=== PATIENT | male | born 1995 | race Caucasian/White ===

== ENCOUNTER 2018-01-19 10:32 | Emergency (ER) | payer OTHER ==
--- NOTE | 2018-01-19 10:50 | ER Document Report ---
ED Medical Screen (RME) - General Chief Complaint: Abdominal Pain Stated Complaint: STOMACH PAIN Time Seen by Provider: 01/19/18 10:43 Notes: RAPID MEDICAL EVALUATION DISCLOSURE I have seen this patient as part of a Rapid Medical Evaluation and, if applicable, placed any initially appropriate orders. The patient will be seen and fully evaluated, including a full history and physical exam, by a provider ( in Main ED or Fast Track) when a room becomes available. 22-year-old male here with complaints of right lower quadrant abdominal pain that he noticed this morning. The pain has been largely constant however has improved since onset and is currently better than it was initially. Pain is worse with movement. He has not taken anything for the pain. He has not had any nausea vomiting diarrhea fevers chills dysuria hematuria frequency. Of note , he was cutting down trees over the weekend and did fairly heavy lifting of 70 and 80 pounds by himself. He denies any flank or back pain. EXAM Mild RLQ TTP Mild right flank TTP Mild right lumbar paraspinal muscle TTP NOTE Patient would like to hold off on ED-administered medications at this time TRAVEL OUTSIDE OF THE [place] IN LAST 30 DAYS: No - Related Data Allergies/Adverse Reactions: amoxicillin trihydrate [From Augmentin] Allergy (Verified 10/30/15 08:04) Potassium Clavulanate * [From Augmentin] Allergy (Verified 10/30/15 08:04) Past Medical History Past Surgical History: Reports: Hx Kidney (Renal Surgery) - as a child Physical Exam - Vital signs Vitals: Temp Pulse Resp BP Pulse Ox 98.0 F 64 16 143/67 H 99 01/19/18 10:39 01/19/18 10:39 01/19/18 10:39 01/19/18 10:39 01/19/18 10:39 Course - Vital Signs Vital signs: Temp Pulse Resp BP Pulse Ox 98.0 F 64 16 143/67 H 99 01/19/18 10:39 01/19/18 10:39 01/19/18 10:39 01/19/18 10:39 01/19/18 10:39
[2018-01-19 11:43] LABS: ALANINE AMINOTRANSFERASE 31 U/L (21-72); ALBUMIN 4.3 g/dL (3.5-5.0); ALKALINE PHOSPHATASE 63 U/L (38-126); ANION GAP 16 (5-19); ASPARTATE AMINO TRANSFERASE 21 U/L (17-59); BILIRUBIN,DIRECT 0.2 mg/dL (0.0-0.4); BILIRUBIN,TOTAL 0.2 mg/dL (0.2-1.3); BLOOD UREA NITROGEN 12 mg/dL (7-20); CARBON DIOXIDE 21 mmol/L (22-30); CHLORIDE 109 mmol/L (98-107); GLUCOSE 124 mg/dL (75-110); LIPASE 54.8 U/L (23-300); SODIUM 145.8 mmol/L (137-145); TOTAL PROTEIN 7.3 g/dL (6.3-8.2)
[2018-01-19 11:47] LABS: APPEARANCE,URINE CLEAR; BILIRUBIN,URINE NEGATIVE (NEGATIVE); COLOR,URINE YELLOW; GLUCOSE, URINE NEGATIVE (NEGATIVE); KETONES,URINE NEGATIVE (NEGATIVE); LEUKOCYTE ESTERASE,URINE NEGATIVE (NEGATIVE); NITRITE,URINE NEGATIVE (NEGATIVE); PROTEIN,URINE NEGATIVE (NEGATIVE); URINE SPECIFIC GRAVITY 1.019; UROBILINOGEN,URINE NEGATIVE mg/dL (<2.0)
[2018-01-19] MEDS ORDERED: NORMAL SALINE 1000 ML 1,000 ML IV ONE (11:50)
[2018-01-19] MEDS ORDERED: KETOROLAC TROMETHAMINE INJ/PF 30 MG/1 ML SDV IV ONE (12:05)
[2018-01-19] MEDS ORDERED: ONDANSETRON HCL INJ/PF 4 MG/2 ML SDV IV ONE (12:05)
[2018-01-19 12:22] LABS: ABSOLUTE EOSINOPHILS # (AUTO) 0.1 10^3/uL (0.0-0.6); ABSOLUTE LYMPHOCYTES (AUTO) 2.4 10^3/uL (0.5-4.7); ABSOLUTE NEUT (AUTO) 8.2 10^3/uL (1.7-8.2); BASOPHILS % (AUTO) 0.3 % (0-2); HEMATOCRIT 45.9 % (37.9-51.0); HEMOGLOBIN 15.6 g/dL (13.5-17.0); LYMPHOCYTES % (AUTO) 20.6 % (13-45); MEAN CORPUSCULAR HEMOGLOBIN 31.9 pg (27.0-33.4); MEAN CORPUSCULAR HGB CONC 33.9 g/dL (32.0-36.0); MEAN CORPUSCULAR VOLUME 94 fl (80-97); MONOCYTES % (AUTO) 8.2 % (3-13); PLATELET COUNT 214 10^3/uL (150-450); RED BLOOD COUNT 4.89 10^6/uL (4.35-5.55); RED CELL DISTRIBUTION WIDTH 13.4 % (11.5-14.0); SEGMENTED NEUTROPHILS % (AUTO) 69.9 % (42-78); TOTAL CELLS COUNTED % (AUTO) 100 %; WHITE BLOOD COUNT 11.7 10^3/uL (4.0-10.5)
--- NOTE | 2018-01-19 12:38 | RADIOLOGY REPORT (SQ) ---
EXAM DESCRIPTION: CT LTD RENAL STONE PROTOCOL ON COMPLETED DATE/TIME: 01/19/2018 12:24 pm REASON FOR STUDY: right flank COMPARISON: CT 10/30/2015 TECHNIQUE: CT scan of the abdomen and pelvis performed without intravenous or oral contrast. Images reviewed with lung, soft tissue, and bone windows. Reconstructed coronal and sagittal MPR images revi ewed. All images stored on PACS. All CT scanners at this facility use dose modulation, iterative reconstruction, and/or weight based d osing when appropriate to reduce radiation dose to as low as reasonably achievable (ALARA). [facility]: Dose Right [facility]: CareDose [facility]: Dose Right [facility]: Teradose 4D [facility]: HomeStars RADIATION DOSE: 18.4mGy. LIMITATIONS: None. FINDINGS: The patient has a right-sided duplicated collecting system. The upper pole kidney cortex and upper pole kidney collecting system are nondilated. No upper pole stones. Along the right lower pole kidney, there is dilatation of the lower pole renal pelvis and diffuse cor tical thinning. No lower pole intrarenal stones or lower pole ureteral stones. Configuration of the right kidney is similar compared to 10/30/2015. LOWER CHEST: No significant findings. No nodules or infiltrates. NON-CONTRASTED LIVER, SPLEEN, ADRENALS: Evaluation limited by lack of IV contrast. No identified sign ificant masses. PANCREAS: No masses. No peripancreatic inflammatory changes. GALLBLADDER: No identified stones by CT criteria. No inflammatory changes to suggest cholecystitis. RIGHT KIDNEY AND URETER: No suspicious masses. Assessment limited by lack of IV contrast. No signif icant calcifications. No hydronephrosis or hydroureter. LEFT KIDNEY AND URETER: As above AORTA AND RETROPERITONEUM: No aneurysm. No retroperitoneal masses or adenopathy. BOWEL AND PERITONEAL CAVITY: No obvious masses or inflammatory changes. No free fluid. APPENDIX: Normal. PELVIS, BLADDER, AND ABDOMINAL WALL:No abnormal masses. No free fluid. Bladder normal. BONES: No significant findings. OTHER: No other significant finding. 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 This is similar compared to 10/30/2015. No CT evidence of obstructive urinary calculi. Normal appendix COMMENT: Quality ID # [id number]: Final reports with documentation of one or more dose reduction techniques (e.g., Automated exposure control, adjustment of the mA and/or kV according to patient size, use of iterative reconstruction technique) TECHNICAL DOCUMENTATION: JOB ID: [id number] [employer]- All Rights Reserved Reading location - IP/workstation name: [email or web address]
--- NOTE | 2018-01-19 13:02 | ER Document Report ---
ED General - General Chief Complaint: Abdominal Pain Stated Complaint: STOMACH PAIN Time Seen by Provider: 01/19/18 10:43 TRAVEL OUTSIDE OF THE [place] IN LAST 30 DAYS: No - HPI Patient complains to provider of: abdominal pain Notes: Patient coming in for abdominal pain right lower quadrant started earlier this morning patient states was acute in onset very intense and that has been intermittent more achy. States there is some mild pain in the right flank mostly in the right lower quadrant. Patient denies any trauma states he has been working outside and lifting heavy objects over the last few days. Patient denies fever chills nausea vomiting diarrhea denies any recent antibiotics denies any other medical issues. - Related Data Allergies/Adverse Reactions: amoxicillin trihydrate [From Augmentin] Allergy (Verified 10/30/15 08:04) Potassium Clavulanate * [From Augmentin] Allergy (Verified 10/30/15 08:04) Past Medical History - Social History Smoking Status: Current Every Day Smoker Chew tobacco use (# tins/day): No Frequency of alcohol use: None Drug Abuse: None Family History: Reviewed & Not Pertinent Patient has suicidal ideation: No Patient has homicidal ideation: No Renal/ Medical History: Denies: Hx Peritoneal Dialysis Past Surgical History: Reports: Hx Kidney (Renal Surgery) - as a child Review of Systems - Review of Systems Constitutional: No symptoms reported EENT: No symptoms reported Cardiovascular: No symptoms reported Respiratory: No symptoms reported Gastrointestinal: Abdominal pain Genitourinary: No symptoms reported Male Genitourinary: No symptoms reported Musculoskeletal: No symptoms reported Skin: No symptoms reported Hematologic/Lymphatic: No symptoms reported Neurological/Psychological: No symptoms reported -: Yes All other systems reviewed and negative Physical Exam - Vital signs Vitals: Temp Pulse Resp BP Pulse Ox 98.0 F 64 16 143/67 H 99 01/19/18 10:39 01/19/18 10:39 01/19/18 10:39 01/19/18 10:39 01/19/18 10:39 Interpretation: Normal - General General appearance: Appears well, Alert - HEENT Head: Normocephalic, Atraumatic Eyes: Normal Conjunctiva: Normal Cornea: Normal Eyelashes: Normal Pupils: PERRL Ears: Normal External canal: Normal Tympanic membrane: Normal Sinus: Normal Mouth/Lips: Normal Mucous membranes: Normal Pharynx: Normal Neck: Normal - Respiratory Respiratory status: No respiratory distress Chest status: Nontender Breath sounds: Normal Chest palpation: Normal - Cardiovascular Rhythm: Regular Heart sounds: Normal auscultation Murmur: No - Abdominal Inspection: Normal Distension: No distension Bowel sounds: Normal Tenderness: Tender - Mild tenderness to the right lower quadrant no rebound or guarding no McBurney's point tenderness no Contreras sign with slight tenderness to palpation of the right flank Organomegaly: No organomegaly - Back Back: Normal, Nontender - Extremities General upper extremity: Normal inspection, Nontender, Normal color, Normal ROM , Normal temperature General lower extremity: Normal inspection, Nontender, Normal color, Normal ROM , Normal temperature, Normal weight bearing. No: Vivi's sign - Neurological Neuro grossly intact: Yes Cognition: Normal Orientation: AAOx4 [place] Coma Scale Eye Opening: Spontaneous [place] Coma Scale Verbal: Oriented [place] Coma Scale Motor: Obeys Commands [place] Coma Scale Total: 15 Speech: Normal Motor strength normal: LUE, RUE, LLE, RLE Sensory: Normal - Psychological Associated symptoms: Normal affect, Normal mood - Skin Skin Temperature: Warm Skin Moisture: Dry Skin Color: Normal Course - Re-evaluation Re-evalutation: 01/19/18 13:34 The patient presents with abdominal pain without signs of peritonitis or other life-threatening or serious etiology. The patient appears stable for discharge and has been instructed to return immediately if the symptoms worsen in any way , or in 8-12hr if not improved for re-evaluation. The patient has been instructed to return if the symptoms worsen or change in any way. 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 He does have a small amount of stool in the right side of the colon. More likely congenital abnormality can explain the small amount hematuria that we see. No signs of UTI patient otherwise resting comfortably. Patient will be discharged on follow-up PCP - Vital Signs Vital signs: Temp Pulse Resp BP Pulse Ox 97.9 F 50 L 18 133/50 H 100 01/19/18 13:20 01/19/18 13:20 01/19/18 13:20 01/19/18 13:20 01/19/18 13:20 - Laboratory Result Diagrams: 01/19/18 12:11 01/19/18 11:00 Laboratory results interpreted by me: 01/19/18 01/19/18 01/19/18 11:00 11:00 11:00 WBC Sodium 145.8 H Chloride 109 H Carbon Dioxide 21 L Glucose 124 H Creatine Kinase 250 H Urine Blood LARGE H 01/19/18 12:11 WBC 11.7 H Sodium Chloride Carbon Dioxide Glucose Creatine Kinase Urine Blood Discharge - Discharge Clinical Impression: Abdominal pain Qualifiers: Abdominal location: right lower quadrant Qualified Code(s): R10.31 - Right lower quadrant pain Condition: Good Disposition: HOME, SELF-CARE Instructions: Abdominal Pain ([facility]) Additional Instructions: Laboratory studies today do not show any signs significant infection or any signs of any pathology that he will require surgery for. CAT scan shows a normal appendix does show a congenital abnormality with your kidney which he has had the last CAT scan approximately 2 years ago there is no change in this. More likely this was a congenital abnormality something that you are born with. No signs of any kidney stones. Your laboratory studies does show signs of dehydration we recommend that you continue to drink plenty water to stay hydrated he may take Bentyl for pain along with Tylenol and Motrin also gave you a medication called Zofran for any nausea that she may experience. Return to the ER for any complications follow-up with your primary care physician in 3- 5 days Prescriptions: Dicyclomine HCl [Bentyl 20 mg Tablet] 20 mg PO QID #30 tablet Ondansetron [Zofran Odt] 4 mg PO Q6 PRN #30 tab.rapdis PRN Reason: For Nausea/Vomiting Forms: Return to Work
[2018-01-19 13:21] VITALS: BP 133/50
== END 2018-01-19 13:20 | disposition home or self-care (01) ==
LOC: ER 10:32
DX: R10.31 Right lower quadrant pain (principal); Z88.0 Allergy status to penicillin
CPT/HCPCS: 99284; 96361; 96374; 96375; 36415; 82550; 83690; 85025; 80053; 81001; 76380; J1885; J2405; J7030